=== PATIENT | female | born 1955 | race Caucasian/White ===

== ENCOUNTER → 2016-08-07 | Outpatient (CLI) | payer OTHER ==
--- OUTSIDE RECORDS SUMMARY | 2016-08-07 09:01 | XMS REPORT | Continuity of Care Document ---
Author Author [facility] Organization [facility] Address Unknown Phone Unavailable Allergies Medications Problems Date Dx Coded Attending Type Code Diagnosis Diagnosed By 06/03/2014 Ot 611.89 06/03/2014 Ot 611.89 06/03/2014 Ot V43.82 06/03/2014 Ot 611.89 06/03/2014 Ot V67.9 06/03/2014 Ot 715.37 06/03/2014 Ot 611.72 06/03/2014 Ot 716.94 06/03/2014 Ot 793.89 06/03/2014 Ot V43.82 06/03/2014 Ot V76.12 06/03/2014 TATIANNA DORSEY DO Ot V76.12 09/16/2014 Ot V76.12 12/08/2014 Ot V76.12 12/16/2014 Ot 611.89 12/16/2014 Ot V43.82 12/16/2014 Ot 611.89 12/16/2014 Ot V67.9 12/16/2014 Ot 715.37 12/16/2014 Ot 611.72 12/16/2014 Ot 716.94 12/16/2014 Ot 793.89 12/16/2014 Ot V43.82 12/16/2014 Ot V76.12 12/16/2014 TATIANNA DORSEY DO Ot V76.12 09/15/2015 TATIANNA DORSEY DO Ot G47.33 09/15/2015 TATIANNA DORSEY DO Ot G47.33 10/06/2015 TATIANNA DORSEY DO Ot Z12.31 Procedures Results Encounters ACCT No. Visit Date/Time Discharge Status Pt. Type Provider Facility Loc./Unit Complaint [id number] 08/22/2015 20:59:00 2015 06:35:00 DIS Outpatient TATIANNA DORSEY DO [facility] SLEEP [id number] 07/03/2013 10:12:00 2013 23:59:59 CLS Outpatient TATIANNA DORSEY DO [facility] RAD [id number] 10/06/2015 09:44:00 ACT Outpatient TATIANNA DORSEY DO [facility] RAD [id number] 08/23/2014 08:48:00 Document Registration [id number] 07/03/2012 15:30:00 Document Registration [id number] 02/20/2012 11:40:00 Document Registration [id number] 04/10/2011 15:06:00 Document Registration [id number] 10/03/2010 13:22:00 Document Registration [id number] 03/14/2010 13:50:00 Document Registration [id number] 09/12/2009 13:40:00 Document Registration [id number] 03/22/2009 14:00:00 Document Registration
--- NOTE | 2016-08-07 09:39 | Diagnostic Imaging Report ---
Clinical indication: Patient with thyromegaly. COMPARISONS: None. FINDINGS: THYROID NODULES: There is a 7 mm x 5 mm x 6 mm heterogeneous hypoechoic/isoechoic nodule in the mid left thyroid gland region. This nodule demonstrates no significant Doppler flow. THYROID GLAND: Besides the thyroid nodule, the thyroid gland has normal size, shape and echogenicity. The right lobe measures 3.8 x 1.5 x 1.8 cm and the left lobe measures 3.8 x 1.3 x 1.4 cm in their three dimensions. ISTHMUS: The isthmus is unremarkable and measures 3.4 mm in thickness. Impression: There is a 7 mm mixed echogenicity nodule in the mid left thyroid gland. Otherwise, unremarkable thyroid ultrasound exam. Dictated by: Dictated on workstation # [id number]
== END ==
LOC: RAD 08:58
PROVIDERS: ATTEND Internal Medicine
DX: E04.1 Nontoxic single thyroid nodule (principal)
CPT/HCPCS: 76536

== ENCOUNTER → 2016-10-10 | Outpatient (CLI) | payer OTHER ==
--- NOTE | 2016-10-11 18:50 | Diagnostic Imaging Report ---
Bilateral screening mammogram The current study was also evaluated with a Computer Aided Detection (CAD) system. Indication: Screening. No current complaints stated on the questionnaire. COMPARISON: 10/06/15. FINDINGS: The breasts are composed of heterogeneously dense parenchyma which may decrease mammographic sensitivity. Symmetric bilateral retropectoral implants are seen with no definite change. Allowing for technique and positional differences, no suspicious change is seen. IMPRESSION: No significant change. ACR BI-RADS Category 2: Benign findings. Result letter will be mailed to the patient. Note: At least 10% of breast cancer is not imaged by mammography. Dictated by: Dictated on workstation # [id number]
== END ==
LOC: RAD 09:22
PROVIDERS: ATTEND Internal Medicine
DX: Z12.31 Encounter for screening mammogram for malignant neoplasm of breast (principal)
CPT/HCPCS: 77067

== ENCOUNTER → 2017-03-22 | Outpatient (CLI) | payer OTHER ==
--- NOTE | 2017-03-22 14:46 | Diagnostic Imaging Report ---
PROCEDURE: US Thyroid. TECHNIQUE: Multiple real-time grayscale images were obtained of the thyroid in various projections. INDICATION: Thyroid nodule. FINDINGS: The right thyroid lobe is 4.3 x 1.7 x 1.7 cm. The left lobe is 3.6 x 1.3 x 1.3 cm. The left lobe demonstrates a 0.7 x 0.5 x 0.7 cm hypoechoic nodule with no definite internal vascularity seen. It is similar in size when compared to study from 08/07/2016. No other nodules are seen. IMPRESSION: Stable nonspecific 7 mm left thyroid nodule seen. Dictated on workstation # [id number]
== END ==
LOC: RAD 09:46
PROVIDERS: ATTEND Internal Medicine
DX: E04.1 Nontoxic single thyroid nodule (principal)
CPT/HCPCS: 76536

== ENCOUNTER → 2017-11-07 | Outpatient (CLI) | payer OTHER ==
--- NOTE | 2017-11-07 18:45 | Diagnostic Imaging Report ---
INDICATION: Routine screening. COMPARISON: Comparison is made with prior exams from 10/10/2016 and 10/06/2015. TECHNIQUE: 2D and 3D bilateral screening mammography was performed computer-aided detection (CAD) system utilizing implant protocol. FINDINGS: Bilateral subpectoral breast implants are again noted. Implant contours appear smooth. Breast parenchyma remains heterogeneously dense, limiting the sensitivity of mammography. Numerous benign-appearing calcifications are scattered throughout both breasts. No dominant mass or malignant appearing microcalcifications are seen. The axillae are unremarkable. IMPRESSION: No mammographic features suspicious for malignancy are identified. ACR BI-RADS Category 2: Benign findings. Result letter will be mailed to the patient. Note: At least 10% of breast cancer is not imaged by mammography. Dictated by: Dictated on workstation # [id number]
== END ==
LOC: RAD 10:49
PROVIDERS: ATTEND Internal Medicine
DX: Z12.31 Encounter for screening mammogram for malignant neoplasm of breast (principal)
CPT/HCPCS: 77067

== ENCOUNTER 2018-03-14 05:40 | Outpatient (CLI) | payer OTHER ==
[~2018-03-14] VITALS: Ht 170.2 cm; Wt 74.4 kg
[2018-03-14] MEDS ORDERED: LISI1TAB8 PO (12:04)
[2018-03-14] MEDS ORDERED: MULT-35 PO (12:04)
[2018-03-14] MEDS ORDERED: CETI10TA17 PO (12:04)
== END 2018-03-14 12:11 | disposition home or self-care (01) ==
LOC: PREOP 05:40
PROVIDERS: ATTEND Internal Medicine
DX: Z01.818 Encounter for other preprocedural examination (principal)

== ENCOUNTER 2018-03-21 07:21 | Day surgery (SDC) | payer OTHER ==
--- NOTE | 2018-03-17 17:33 | HISTORY AND PHYSICAL ---
DATE OF SERVICE: HISTORY OF PRESENT ILLNESS: The patient is a 62-year-old white female referred by Dr. De La Rosa for screening colonoscopy. 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 There was no evidence for recurrence in 2007 and she is returned for repeat screening colonoscopy. She reports that she feels well. She has noted no bright red blood per rectum or melena and reports no bowel habit change, denying diarrhea or constipation. She has had no tenesmus or rectal pain. She reports no change in her health history other than the initiation of lisinopril for hypertension. She does take some diclofenac for arthritis aches and pains, but only on a p.r.n. basis, and is on Zyrtec for allergy symptoms with multiple vitamin. She takes no aspirin. PAST SURGICAL HISTORY: Significant for breast augmentation in 2000. She had a D and C in 1992 and foot surgery in 1997 with no procedures over the past 10 years. PAST MEDICAL HISTORY: Significant for hypertension and osteoarthritis as well as seasonal allergies. SOCIAL HISTORY: She is employed with social alcohol intake and no reported smoking history. PHYSICAL EXAMINATION: GENERAL: Reveals a well-appearing white female in no acute distress. Weight 166.4 pounds. VITAL SIGNS: Blood pressure 128/70. HEENT: Unremarkable. She is a Mallampati class 3 oropharyngeal configuration. Pharynx is clear. Sclerae were nonicteric. NECK: Revealed no JVD, adenopathy or bruits. CHEST: Clear to auscultation. CARDIOVASCULAR: Reveals a regular rate and rhythm without murmur, S3 or S4. ABDOMEN: Soft, supple without mass, organomegaly or tenderness. She has a small reducible, nontender periumbilical hernia. EXTREMITIES: Reveal no cyanosis, clubbing or edema. ASSESSMENT: The patient is set up for screening colonoscopy on 03/21/2018. Prep instructions with Suprep kit were given and the questions were answered. I thank you for the referral of this pleasant lady. Job ID: [id number] DocumentID: [id number] Dictated Date: 03/13/2018 16:35:21 Press Loader Date: 03/13/2018 17:03:54 Dictated By: ADRI BARRY MD [facility] HOSPITALJoselyn
[~2018-03-21] VITALS: Ht 170.2 cm; Wt 74.4 kg
[~2018-03-21 07:21] MED LIST: CETI10TA17 PO; LISI1TAB8 PO; MULT-35 PO
--- OUTSIDE RECORDS SUMMARY | 2018-03-21 07:24 | XMS REPORT | Continuity of Care Document ---
Author Author [facility] Organization [facility] Address Unknown Phone Unavailable Allergies Active Description Code Type Severity Reaction Onset Reported/Identified Relationship to Patient Clinical Status Yes No Known Drug Allergies [id number] Drug Allergy Unknown N/A 03/14/2018 Medications There is no data. Problems Date Dx Coded Attending Type Code [...] V76.12 12/16/2014 TATIANNA DORSEY DO Ot V76.12 08/23/2015 TATIANNA DORSEY DO Ot G47.33 OBSTRUCTIVE SLEEP APNEA (ADULT) (PEDIATR 09/15/2015 TATIANNA DORSEY DO Ot G47.33 09/15/2015 TATIANNA DORSEY DO Ot G47.33 10/06/2015 TATIANNA DORSEY DO Ot Z12.31 08/07/2016 Ot 611.72 LUMP OR MASS IN BREAST 08/07/2016 Ot 716.94 ARTHROPATHY NOS-HAND 08/07/2016 Ot 793.89 OTH (ABN) FINDINGS ON RADIOLOGICAL EXAMI 08/07/2016 Ot V43.82 BREAST REPLACEMENT STATUS 08/07/2016 Ot V76.12 OTH SCREEN MAMMO-MALIGN NEOPLASM OF TE 08/07/2016 TATIANNA DORSEY DO Ot V76.12 OTH SCREEN MAMMO-MALIGN NEOPLASM OF TE 08/07/2016 TATIANNA DORSEY DO Ot Z12.31 ENCNTR SCREEN MAMMOGRAM FOR MALIGNANT NE 08/08/2016 TATIANNA DORSEY DO Ot E04.1 NONTOXIC SINGLE THYROID NODULE 10/11/2016 TATIANNA DORSEY DO Ot Z12.31 ENCNTR SCREEN MAMMOGRAM FOR MALIGNANT NE 03/22/2017 TATIANNA DORSEY DO Ot E04.1 NONTOXIC SINGLE THYROID NODULE 03/28/2017 TATIANNA DORSEY DO Ot E04.1 NONTOXIC SINGLE THYROID NODULE 04/26/2017 TATIANNA DORSEY DO Ot E04.1 NONTOXIC SINGLE THYROID NODULE 11/08/2017 TATIANNA DORSEY DO Ot Z12.31 ENCNTR SCREEN MAMMOGRAM FOR MALIGNANT NE 02/14/2018 TATIANNA DORSEY DO Ot V76.12 OT SCREEN MAMMO-MALIGN NEOPLASM OF TE 02/14/2018 TATIANNA DORSEY DO Ot Z12.31 ENCNTR SCREEN MAMMOGRAM FOR MALIGNANT NE 02/14/2018 TATIANNA DORSEY DO Ot E04.1 NONTOXIC SINGLE THYROID NODULE 02/14/2018 TATIANNA DORSEY DO Ot Z12.31 ENCNTR SCREEN MAMMOGRAM FOR MALIGNANT NE 02/14/2018 TATIANNA DORSEY DO Ot E04.1 NONTOXIC SINGLE THYROID NODULE 02/14/2018 TATIANNA DORSEY DO Ot Z12.31 ENCNTR SCREEN MAMMOGRAM FOR MALIGNANT NE 03/14/2018 ADRI BARRY MD Ot Z01.818 ENCOUNTER FOR OTHER PREPROCEDURAL EXAMIN 03/17/2018 ADRI BARRY MD Ot Z01.818 ENCOUNTER FOR OTHER PREPROCEDURAL EXAMIN 03/17/2018 ADRI BARRY MD Ot Z01.818 ENCOUNTER FOR OTHER PREPROCEDURAL EXAMIN Procedures There is no data. Results There is no data. Encounters ACCT No. Visit Date/Time Discharge Status Pt. Type Provider Facility Loc./Unit Complaint [id number] 03/14/2018 05:40:00 03/14/2018 12:11:00 DIS Outpatient ADRI BARRY MD [facility] PREOP COLONOSCOPY [id number] 02/17/2018 11:47:00 02/17/2018 23:59:59 CLS Outpatient DORSEY TATIANNA DOWELL [facility] RAD THYROID NODULE [id number] 11/07/2017 10:49:00 11/07/2017 23:59:59 CLS Outpatient DORSEY TATIANNA DOWELL [facility] RAD SCREENING [id number] 03/22/2017 09:46:00 03/22/2017 23:59:59 CLS Outpatient SUNITA DOWELLTATIANNA [facility] RAD LT THYROID NODULE [id number] 10/10/2016 09:22:00 10/10/2016 23:59:59 CLS Outpatient DORSEY DOTATIANNA [facility] RAD SCREENING [id number] 08/07/2016 08:58:00 08/07/2016 23:59:59 CLS Outpatient DORSEY TATIANNA DOWELL [facility] RAD THYROIDNEGALY [id number] 10/06/2015 09:44:00 10/06/2015 23:59:59 CLS Outpatient SUNITA DOWELLTATIANNA [facility] RAD SCREENING [id number] 08/22/2015 20:59:00 08/23/2015 06:35:00 DIS Outpatient SUNITA DOWELLTATIANNA [facility] SLEEP OBSERVED APNEAS, SNORING, CHOKING AND GASPING, HTN [id number] 07/03/2013 10:12:00 07/03/2013 23:59:59 CLS Outpatient SUNITA DOWELL TATIANNA Amber [facility] RAD SCREENING [id number] 03/21/2018 08:45:00 PEN Preadmit ADRI BARRY MD [facility] ENDO SCREENING [id number] 08/23/2014 08:48:00 Document Registration [id number] 07/03/2012 15:30:00 Document Registration [id number] 02/20/2012 11:40:00 Document Registration [id number] 04/10/2011 15:06:00 Document Registration [id number] 10/03/2010 13:22:00 Document Registration [id number] 03/14/2010 13:50:00 Document Registration [id number] 09/12/2009 13:40:00 Document Registration [id number] 03/22/2009 14:00:00 Document Registration
[2018-03-21] MEDS ORDERED: D5 LR IV SOLUTION 1,000 ML IV STA (07:50)
[2018-03-21] MEDS ORDERED: MIDAZOLAM 2 MG/2 ML (VERSED) VIAL IVP ONE (08:00)
[2018-03-21] MEDS ORDERED: fentaNYL INJECTION 100 MCG/2 ML AMP IVP ONE (08:00)
[2018-03-21] MEDS ORDERED: LIDOCAINE JELLY 2% 6 ML SYRINGE MM PRN ×2 (08:00)
[2018-03-21 08:12] VITALS: BP 118/85
--- NOTE | 2018-03-21 08:42 | Pre-Op Note & Conscious Sedat ---
Pre-Operative Progress Note H&P Reviewed The H&P was reviewed, patient examined and no changes noted. Date H&P Reviewed: Mar 21, 2018 Time H&P Reviewed: 08:41 Conscious Sedation Pre-Proced ASA Score 2 For ASA 3 and 4: Consider anesthesia and medical clearance. Also, for patients with a history of failed moderate sedation consider anesthesia. Airway Lungs Heart ASA score ASA 1: a normal healthy patient ASA 2: a patient with a mild systemic disease (mid diabetes, controlled hypertension, obesity ASA 3: a patient with a severe systemic disease that limits activity (angina , COPD, prior Myocardial infarction) ASA 4: a patient with an incapacitating disease that is a constant threat to life (CHF, renal failure) ASA 5: a moribund patient not expected to survive 24 hrs. (ruptured aneurysm) ASA 6: a declared brain patient whose organs are being harvested. For emergent operations, add the letter E after the classification Mallampati Classification Grade 3 Sedation Plan Analgesia, Amnesia, Plan communicated to team members, Discussed options with patient/fam, Discussed risks with patient/fam The patient is an appropriate candidate to undergo the planned procedure, sedation, and anesthesia. The patient immediately re-assessed prior to indication. ADRI BARRY MD Mar 21, 2018 08:41
[2018-03-21] MEDS ORDERED: fentaNYL INJECTION 100 MCG/2 ML AMP ONE (08:49)
[2018-03-21] MEDS ORDERED: MIDAZOLAM 2 MG/2 ML (VERSED) VIAL ONE ×2 (08:49)
[2018-03-21 09:50] VITALS: BP 115/66
[2018-03-21 10:30] VITALS: BP 116/79
[2018-03-21 10:45] VITALS: BP 116/79
--- NOTE | 2018-03-21 15:54 | OPERATIVE REPORT ---
DATE OF SERVICE: 03/21/2018 COLONOSCOPY SUMMARY INDICATION FOR THE PROCEDURE: Screening colonoscopy. DESCRIPTION OF PROCEDURE: The patient was placed in the left lateral decubitus position. Prior to undergoing colonoscopy, digital rectal evaluation was performed. Anal sphincter tone was normal and the perianal reflex is intact. There is no evidence for internal or external hemorrhoids. There is a moderate sized anterior rectocele noted, but no other abnormalities are noted on digital inspection of anal canal or distal rectal vault. The colonoscope was then inserted into the rectum and under direct visualization advanced to the cecum. The cecum was identified by identification of the ileocecal valve and cecal strap. Photographic documentation was obtained. A careful inspection was made as the colonoscope was withdrawn. The patient tolerated the procedure well. FINDINGS: There was no evidence for internal or external hemorrhoids and the rectum was unremarkable. Several small sigmoid diverticulum were present without evidence for diverticulitis. No other sigmoid or colonic abnormalities were appreciated. The descending colon, splenic flexure, transverse colon, hepatic flexure, ascending colon and cecum were unremarkable. ASSESSMENT: 1. No evidence for neoplasia on today's procedure. Consideration for repeat screening colonoscopy in 10 years as long as there continues to be no family history for colon cancer. 2. Mild diverticular disease confined to the sigmoid colon was present without evidence for diverticulitis. 3. Moderate size anterior rectocele was noted. I thank you for the referral of this pleasant lady. Job ID: [id number] DocumentID: [id number] Dictated Date: 03/21/2018 10:23:23 Chemistry Intern Date: 03/21/2018 15:53:41 Dictated By: ADRI BARRY MD MTDD
== END 2018-03-21 10:45 | disposition home or self-care (01) ==
LOC: ENDO 07:21
PROVIDERS: ATTEND Internal Medicine
DX: Z12.11 Encounter for screening for malignant neoplasm of colon (principal); K57.30 Diverticulosis of large intestine without perforation or abscess without bleeding; N81.6 Rectocele; I10 Essential (primary) hypertension; M19.91 Primary osteoarthritis, unspecified site; J30.9 Allergic rhinitis, unspecified; Z79.899 Other long term (current) drug therapy

== ENCOUNTER → 2018-11-10 | Outpatient (CLI) | payer OTHER ==
--- NOTE | 2018-11-10 11:20 | Diagnostic Imaging Report ---
INDICATION: Routine screening. COMPARISON: 11/07/2017 and 10/10/2016. TECHNIQUE: 2D and 3D bilateral screening mammography was performed with CAD. FINDINGS: Bilateral subpectoral breast implants are noted. The implant contours are smooth. Both breasts remain heterogeneously dense, limiting the sensitivity of mammography. Benign calcifications are scattered throughout both breasts. No dominant mass or malignant appearing microcalcifications are seen. The axillae are unremarkable. IMPRESSION: No mammographic features suspicious for malignancy are identified. ACR BI-RADS Category 2: Benign findings. Result letter will be mailed to the patient. Note: At least 10% of breast cancer is not imaged by mammography. Dictated by: Dictated on workstation # [id number]
== END ==
LOC: RAD 08:54
PROVIDERS: ATTEND Internal Medicine
DX: Z12.31 Encounter for screening mammogram for malignant neoplasm of breast (principal); Z98.82 Breast implant status
CPT/HCPCS: 77067

== ENCOUNTER → 2019-11-17 | Outpatient (CLI) | payer OTHER ==
[~2019-11-17] MED LIST changes: +LISI1TAB25 PO; -LISI1TAB8 PO
--- NOTE | 2019-11-17 13:06 | Diagnostic Imaging Report ---
INDICATION: Routine screening. Comparison is made with prior mammogram from 11/10/2018 and 11/07/2017. 2-D and 3-D bilateral screening mammography was performed with CAD. Bilateral subpectoral breast implants are again noted. Implant contours appear to be smooth. Both breasts are heterogeneously dense, limiting the sensitivity of mammography. Benign-appearing parenchymal and vascular calcifications are again noted bilaterally. The overall parenchymal pattern appears to be stable. No mass or malignant appearing microcalcifications are seen. Axillae are unremarkable. IMPRESSION: BI-RADS Category 2 No mammographic features suspicious for malignancy are identified. ACR BI-RADS Category 2: Benign findings. Result letter will be mailed to the patient. Note: At least 10% of breast cancer is not imaged by mammography. Dictated by: Dictated on workstation # [id number]
== END ==
LOC: RAD 07:35
PROVIDERS: ATTEND Internal Medicine
DX: Z12.31 Encounter for screening mammogram for malignant neoplasm of breast (principal)
CPT/HCPCS: 77063; 77067

== ENCOUNTER → 2020-12-01 | Outpatient (CLI) | payer OTHER ==
[~2020-12-01] MED LIST changes: -LISI1TAB25 PO; +LISI1TAB46 PO
--- NOTE | 2020-12-01 12:24 | Diagnostic Imaging Report ---
Digital mammogram INDICATION: Bilateral screening This study was compared to the prior exams of 11/17/2019, 11/10/2018 and 11/08/2015. At this time there are no current complaints. As noted on the prior exam there are bilateral breast implants in place. The implants seem intact. There is no sign of an extracapsular rupture of either implant. Fibroglandular tissue overlying each implant is heterogeneously dense. This does limit the sensitivity of this exam. Overall, there does not appear to have been any significant change since the prior study. There is no primary or secondary sign of malignancy noted. IMPRESSION: 1. There is no evidence of malignancy. 2. The bilateral breast implants appear stable. ACR BI-RADS Category 1: Negative. Result letter will be mailed to the patient. Note: At least 10% of breast cancer is not imaged by mammography. Dictated by: Dictated on workstation # [id number]
== END ==
LOC: RAD 10:06
PROVIDERS: ATTEND Internal Medicine
DX: Z12.31 Encounter for screening mammogram for malignant neoplasm of breast (principal)
CPT/HCPCS: 77063; 77067

== ENCOUNTER → 2021-12-20 | Outpatient (CLI) | payer OTHER ==
--- NOTE | 2021-12-21 10:00 | Diagnostic Imaging Report ---
Indication: Routine screening. Comparison is made with prior mammogram 12/01/2020 and 11/17/2019. 2-D and 3-D bilateral screening mammography was performed with CAD. CAD is utilized. The current study was also evaluated with a Computer Aided Detection (CAD) system. Bilateral subpectoral breast implants are again noted. Implant contours are smooth. Both breasts are heterogeneously dense, limiting the sensitivity of mammography. The parenchymal pattern is stable. No mass or malignant-appearing microcalcifications are seen. There are benign calcifications present. Axillae are unremarkable. IMPRESSION: BI-RADS Category 2 No mammographic features suspicious for malignancy are identified. ACR BI-RADS Category 2: Benign findings. Result letter will be mailed to the patient. Note: At least 10% of breast cancer is not imaged by mammography. Dictated by: Dictated on workstation # [id number]
== END ==
LOC: RAD 14:33
PROVIDERS: ATTEND Internal Medicine
DX: Z12.31 Encounter for screening mammogram for malignant neoplasm of breast (principal)
CPT/HCPCS: 77063; 77067

== ENCOUNTER → 2022-12-18 | Outpatient (CLI) | payer OTHER ==
--- NOTE | 2022-12-18 16:54 | Diagnostic Imaging Report ---
INDICATION: Postmenopausal screening for osteoporosis COMPARISON: None FINDINGS: AP Spine L1-L4: [BMD (g/cm2): 1.299] [T-Score: 0.8] [Z-Score: 2.1] [BMD Previous: NA] [BMD % Change: NA] LT Hip Neck: [BMD (g/cm2): 0.889] [T-Score: -1.1] [Z-Score: 0.2] LT Hip Total: [BMD (g/cm2):0.905] [T-Score:-0.8] [Z-Score: 0.2] [BMD Previous: NA] [BMD % Change: NA] RT Hip Neck: [BMD (g/cm2):NA] [T-Score:NA] [Z-Score:NA] RT Hip Total: [BMD (g/cm2):NA] [T-score:NA] [Z-Score:NA] [BMD Previous:NA] [BMD % Change:NA] *Indicates significant change from prior examination based on 95% confidence level. World Health Organization criteria for BMD interpretation classify patients as Normal (T-score at or above -1.0), Osteopenic (T-score between -1.0 and -2.5) or Osteoporotic (T-score at or below -2.5). LIMITATIONS AND MODIFICATION: None. FRACTURE RISK (FRAX SCORE): The ten year probability of (%): Major Osteoporotic Fracture: [8.6] Hip Fracture: [0.7] IMPRESSION: 1. Osteopenia (Low bone mass). 2. Baseline examination. 3. See below National Osteoporosis Foundation guidelines on when to potentially initiate pharmacologic therapy. Based on the National Osteoporosis Foundation Guidelines, pharmacologic treatment should be initiated in any of the following, unless clinical conditions suggest otherwise: * Any patient with prior fragility fracture of the hip or vertebrae. A spine fracture indicates 5X risk for subsequent spine fracture and 2X risk for subsequent hip fracture. * Osteoporosis (T-score <-2.5). * Postmenopausal women and men age 50 and older with low bone mass/osteopenia (T-score between -1.0 and -2.5) by DXA and 10-year major osteoporotic fracture greater than 20% or a 10-year probability of hip fracture greater than 3%. These fracture risks are supplied above in the FRAX score, if applicable. * Clinician judgement and/or patient preferences may indicate treatment for people with 10-year fracture probabilities above or below these levels. Dictated by: Dictated on workstation # [id number]
== END ==
LOC: RAD 10:53
PROVIDERS: ATTEND Internal Medicine
DX: Z12.31 Encounter for screening mammogram for malignant neoplasm of breast (principal); Z13.820 Encounter for screening for osteoporosis; M85.80 Other specified disorders of bone density and structure, unspecified site
CPT/HCPCS: 77080

== ENCOUNTER → 2022-12-26 | Outpatient (CLI) | payer OTHER ==
--- NOTE | 2022-12-26 13:07 | Diagnostic Imaging Report ---
Indication: Routine screening. Comparison is made with prior mammogram from 12/20/2021 and 12/07/2020. 2-D and 3-D bilateral screening mammography was performed with CAD. The current study was also evaluated with a Computer Aided Detection (CAD) system. Bilateral subpectoral breast implants again noted. Implant contours are smooth without evidence of extracapsular rupture. Both breasts are heterogeneously dense, limiting the sensitivity of mammography. Benign calcifications are noted bilaterally. No mass or malignant-appearing microcalcifications are seen. Axillae are unremarkable. IMPRESSION: BI-RADS Category 2 No mammographic features suspicious for malignancy are identified. ACR BI-RADS Category 2: Benign findings. Result letter will be mailed to the patient. Note: At least 10% of breast cancer is not imaged by mammography. Dictated by: Dictated on workstation # [id number]
== END ==
LOC: RAD 09:45
PROVIDERS: ATTEND Internal Medicine
DX: Z12.31 Encounter for screening mammogram for malignant neoplasm of breast (principal)
CPT/HCPCS: 77063; 77067